=== PATIENT | male | born 1935 | race Caucasian/White ===

== ENCOUNTER 2018-10-05 16:01 | Outpatient (RCR) | payer MEDICARE, OTHER | END 2018-10-30 | LOC: PT 16:01 | PROVIDERS: ATTEND Psychiatry & Neurology Clinical Neurophysiology | DX: R26.9 Unspecified abnormalities of gait and mobility (principal) ==

== ENCOUNTER → 2020-04-18 | Day surgery (SDC) | payer MEDICARE, OTHER ==
[~2020-04-18] VITALS: Ht 193 cm; Wt 93.9 kg
[~2020-04-18] MED LIST: AMIODARONE HCL100 MG PO; BALANCED SALT SOLN (OPTH) 15 ML BTL IO ONE; BUPIVACAINE HC 0.75% PF 10ML VIAL INJ ONE; CYCLOPENTOLATE HCL 2% OPTH SOLN 2 ML BTL OP ONE; ELIQUIS5 MG PO; EPINEPHRINE HCL 1:1000 1ML 1 MG/ML AMP ONE; ERLEADA60 MG PO; FENTANYL CITRATE/PF 100MCG/2 ML INJ ONE; GATIFLOXACIN(OPTH) 5 ML LIQD ONE; LEVOTHYROXINE50 MCG PO; LIDOCAINE 2% /EPINEPHRINE 20 ML SDV INJ ONE; LIDOCAINE HCL-PF 4% 40 MG/1 ML 5ML AMP ONE; LUPRON DEPOT3.75 M1; METOPROLOL TART50 MG PO; METOPROLOL TARTRATE INJ 1 MG/ML VIAL ONE; PHENYLEPHRINE HCL 2 ML DROPS ONE; POVIDONE IODINE 5% (OPTH) 30 ML BTL ONE; PROPOFOL IV EMULSION 10 MG/ML 20 ML VIAL ONE; TOBRAMYCIN/DEXAMETHASONE(OPTH) 3.5 GM TUBE ONE
[2020-04-18 11:55] VITALS: BP 130/102
== END | disposition home or self-care (01) ==
LOC: OR 08:25
PROVIDERS: ATTEND Ophthalmology
DX: H25.11 Age-related nuclear cataract, right eye (principal); C61 Malignant neoplasm of prostate; I10 Essential (primary) hypertension; I48.91 Unspecified atrial fibrillation; E03.9 Hypothyroidism, unspecified; Z79.02 Long term (current) use of antithrombotics/antiplatelets
CPT/HCPCS: 66984; J0171; J2001; J2704; U0002; V2632; J3010

== ENCOUNTER → 2020-05-23 | Day surgery (SDC) | payer MEDICARE, OTHER ==
[~2020-05-23] MED LIST changes: -FENTANYL CITRATE/PF 100MCG/2 ML INJ ONE; -METOPROLOL TARTRATE INJ 1 MG/ML VIAL ONE; +PILOCARPINE HCL(OPTH) 15 ML LIQD ONE
[2020-05-23 11:53] VITALS: BP 143/99
== END | disposition home or self-care (01) ==
LOC: OR 08:33
PROVIDERS: ATTEND Ophthalmology
DX: H25.12 Age-related nuclear cataract, left eye (principal); I10 Essential (primary) hypertension; I48.91 Unspecified atrial fibrillation; I44.0 Atrioventricular block, first degree; Z01.812 Encounter for preprocedural laboratory examination; Z11.59 Encounter for screening for other viral diseases; Z79.02 Long term (current) use of antithrombotics/antiplatelets; Z85.46 Personal history of malignant neoplasm of prostate
CPT/HCPCS: 66982; J0171; J2001; J2704; U0002

== ENCOUNTER 2021-05-18 16:59 | Inpatient (IN) | payer MEDICARE, OTHER ==
[~2021-05-18] VITALS: Ht 193 cm; Wt 106.1 kg
[~2021-05-18 16:59] MED LIST changes: -BALANCED SALT SOLN (OPTH) 15 ML BTL IO ONE; -BUPIVACAINE HC 0.75% PF 10ML VIAL INJ ONE; -CYCLOPENTOLATE HCL 2% OPTH SOLN 2 ML BTL OP ONE; -EPINEPHRINE HCL 1:1000 1ML 1 MG/ML AMP ONE; -GATIFLOXACIN(OPTH) 5 ML LIQD ONE; -LIDOCAINE 2% /EPINEPHRINE 20 ML SDV INJ ONE; -LIDOCAINE HCL-PF 4% 40 MG/1 ML 5ML AMP ONE; -PHENYLEPHRINE HCL 2 ML DROPS ONE; -PILOCARPINE HCL(OPTH) 15 ML LIQD ONE; -POVIDONE IODINE 5% (OPTH) 30 ML BTL ONE; -PROPOFOL IV EMULSION 10 MG/ML 20 ML VIAL ONE; -TOBRAMYCIN/DEXAMETHASONE(OPTH) 3.5 GM TUBE ONE
[2021-05-18] MEDS ORDERED: SODIUM CHLORIDE 0.9% 1000ML 1,000 ML IV ONE ×2 (17:15→19:45)
[2021-05-18 17:39] LABS: BASOPHILS % 0.1 % (0.0-1.0); EOSINOPHILS % 0.1 % (0.0-6.0); HEMATOCRIT 31.9 % (38.2-49.6); HEMOGLOBIN 10.6 g/dL (14.0-18.0); LYMPHOCYTES # (AUTO) 1.1 (1.0-3.2); LYMPHOCYTES % 4.2 % (18.0-39.1); MEAN CORPUSCULAR HEMOGLOBIN 28.4 pg (28-32); MEAN CORPUSCULAR HGB CONC 33.2 g/dL (31-35); MEAN CORPUSCULAR VOLUME 85.5 fL (81-99); MONOCYTES # (AUTO) 2.2 (0.2-0.8); MONOCYTES % 8.6 % (4.4-11.3); NEUTROPHILS # (AUTO) 21.7 (2.1-6.9); NEUTROPHILS % 86.1 % (38.7-80.0); PLATELET COUNT 200 x10e3/uL (140-360); RED BLOOD COUNT 3.73 x10e6/uL (4.3-5.7); RED CELL DISTRIBUTION WIDTH 15.4 % (11.7-14.4)
[2021-05-18 17:52] LABS: ALANINE AMINOTRANSFERASE 35 IU/L (0-55); ALBUMIN 2.2 g/dL (3.5-5.0); ALBUMIN/GLOBULIN RATIO 0.8 (0.8-2.0); ALKALINE PHOSPHATASE 531 IU/L (40-150); BLOOD UREA NITROGEN 43 mg/dL (7-26); BUN/CREATININE RATIO 30 (6-25); CARBON DIOXIDE 21 mmol/L (22-29); CHLORIDE 97 mmol/L (98-107); CREATINE KINASE 133 IU/L (30-200); CREATININE, SERUM 1.44 mg/dL (0.72-1.25); EST GLOMERULAR FILTRATION RATE 47 ML/MIN (60-); GLUCOSE 121 mg/dL (74-118); SODIUM 129 mmol/L (136-145)
[2021-05-18] MEDS ORDERED: PIPERACILLIN/TAZOBACTAM 3.375 GM in SODIUM CHLORIDE 0.9% 50ML 50 ML IV ONE (18:45)
[2021-05-18] MEDS ORDERED: SODIUM CHLORIDE 0.9% 1000ML 1,000 ML ONE (19:34)
[2021-05-18 20:48] LABS: CLARITY,URINE CLEAR (CLEAR); COLOR,URINE YELLOW (YELLOW); KETONES,URINE NEGATIVE (NEGATIVE); LEUKOCYTE ESTERASE ,URINE NEGATIVE (NEGATIVE); NITRITE,URINE NEGATIVE (NEGATIVE); PROTEIN,URINE DIPSTICK NEGATIVE (NEGATIVE)
[2021-05-18 20:49] LABS: URINE UROBILINOGEN 1 mg/dL (0.2 - 1)
[2021-05-18 21:01] LABS: BACTERIA,URINE FEW /HPF; EPITHELIAL CELLS,URINE FEW /LPF; RBC,URINE 0-5 /HPF (0-5); WBC,URINE (MAN) 0-5 /HPF (0-5)
[2021-05-18 21:58] VITALS: BP 109/71
[2021-05-18] MEDS: SODIUM CHLORIDE 0.9% 1000ML 1,000 ML IV SCH (22:00)
[2021-05-18] MEDS: PIPERACILLIN/TAZOBACTAM 3.375 GM in SODIUM CHLORIDE 0.9% 50ML 50 ML IV SCH (22:00)
[2021-05-18 22:35] VITALS: BP 109/71
[2021-05-18] MEDS ORDERED: MULTAQ 400MG T400 MG PO (23:52)
[2021-05-18] MEDS ORDERED: LEVOTHYROXINE50 MCG PO (23:52)
[2021-05-18 23:59] VITALS: BP 103/60
[2021-05-19] VITALS (7 sets, daily range): BP systolic 91–100; BP diastolic 53–64
[2021-05-19] MEDS: Morphine 4mg Syringe 4 MG/ML INJ IV PRN (04:38)
[2021-05-19] MEDS: PIPERACILLIN/TAZOBACTAM 3.375 GM in SODIUM CHLORIDE 0.9% 50ML 50 ML IV SCH ×3 (04:38→21:45)
[2021-05-19 05:33] LABS: BASOPHILS % 0.2 % (0.0-1.0); EOSINOPHILS # (AUTO) 0.1 (0.0-0.4); EOSINOPHILS % 0.3 % (0.0-6.0); HEMATOCRIT 26.2 % (38.2-49.6); HEMOGLOBIN 9.1 g/dL (14.0-18.0); LYMPHOCYTES % 4.1 % (18.0-39.1); MEAN CORPUSCULAR HEMOGLOBIN 28.6 pg (28-32); MEAN CORPUSCULAR HGB CONC 34.7 g/dL (31-35); MEAN CORPUSCULAR VOLUME 82.4 fL (81-99); MONOCYTES % 8.7 % (4.4-11.3); NEUTROPHILS # (AUTO) 19.8 (2.1-6.9); NEUTROPHILS % 85.7 % (38.7-80.0); PLATELET COUNT 182 x10e3/uL (140-360); RED BLOOD COUNT 3.18 x10e6/uL (4.3-5.7); RED CELL DISTRIBUTION WIDTH 15.5 % (11.7-14.4)
[2021-05-19] MEDS: METRONIDAZOLE 500MG/NS 100ML 100 ML IV SCH ×5 (06:00→23:55)
[2021-05-19 06:06] LABS: ALBUMIN 1.7 g/dL (3.5-5.0); ALBUMIN/GLOBULIN RATIO 0.8 (0.8-2.0); ANION GAP 13.2 mmol/L (8-16); CALCIUM 7.4 mg/dL (8.4-10.2); CREATININE, SERUM 1.09 mg/dL (0.72-1.25); POTASSIUM 4.2 mmol/L (3.5-5.1)
[2021-05-19] MEDS: SODIUM CHLORIDE 0.9% 1000ML 1,000 ML IV SCH ×4 (06:58→20:00)
[2021-05-19 08:01] LABS: LYMPHOCYTES % (MANUAL) 4 % (19-48); MONOCYTES % (MANUAL) 5 % (3.4-9.0); NEUTROPHILS % (MANUAL) 91 % (40-74); PLATELET ESTIMATE ADEQUATE; PLATELET MORPHOLOGY COMMENT NORMAL; RBC MORPHOLOGY COMMENT NORMAL
[2021-05-19] MEDS ORDERED: PROPOFOL IV EMULSION 10 MG/ML 20 ML VIAL ONE (13:41)
[2021-05-19] MEDS ORDERED: SEVOFLURANE INHAL SOLN 250 ML PEN BTL ONE (13:41)
[2021-05-19] MEDS ORDERED: LIDOCAINE HCL 2% LOCAL INJ 5 ML SDV VIAL INJ ONE (13:41)
[2021-05-19] MEDS ORDERED: ONDANSETRON HCL INJ 2MG/ML 2ML 2 MG/ML VIAL ONE (13:41)
[2021-05-19] MEDS ORDERED: POVIDONE IODINE 0.05% 0.05 % ML PO ONE (13:41)
[2021-05-19] MEDS ORDERED: BUPIVACAINE 0.25% 30ML SDV ONE (14:08)
[2021-05-19] MEDS ORDERED: LIDOCAINE 1% W/EPINEPHRINE 20 ML VIAL ONE (14:08)
[2021-05-19] MEDS ORDERED: ONDANSETRON HCL INJ 2MG/ML 2ML 2 MG/ML VIAL IV PRN (14:45)
[2021-05-19] MEDS ORDERED: HYDROCODONE/APAP 7.5MG-325MG 1 EA TAB PO PRN (14:45)
[2021-05-19] MEDS ORDERED: FENTANYL CITRATE/PF 100MCG/2 ML INJ ONE (16:17)
[2021-05-19] MEDS: DRONEDARONE 400 MG TAB PO SCH ×2 (17:00→17:15)
[2021-05-19] MEDS: MAGNESIUM HYDROXIDE 30 ML UDC PO SCH (23:05)
[2021-05-20] VITALS (7 sets, daily range): BP systolic 95–109; BP diastolic 58–73
[2021-05-20 05:16] LABS: BASOPHILS % 0.1 % (0.0-1.0); EOSINOPHILS # (AUTO) 0.1 (0.0-0.4); EOSINOPHILS % 0.5 % (0.0-6.0); HEMATOCRIT 25.7 % (38.2-49.6); HEMOGLOBIN 8.6 g/dL (14.0-18.0); LYMPHOCYTES % 4.8 % (18.0-39.1); MEAN CORPUSCULAR HEMOGLOBIN 28.4 pg (28-32); MEAN CORPUSCULAR HGB CONC 33.5 g/dL (31-35); MEAN CORPUSCULAR VOLUME 84.8 fL (81-99); MONOCYTES # (AUTO) 1.9 (0.2-0.8); MONOCYTES % 9.2 % (4.4-11.3); NEUTROPHILS # (AUTO) 17.1 (2.1-6.9); NEUTROPHILS % 84.6 % (38.7-80.0); PLATELET COUNT 197 x10e3/uL (140-360); RED BLOOD COUNT 3.03 x10e6/uL (4.3-5.7); RED CELL DISTRIBUTION WIDTH 15.6 % (11.7-14.4)
[2021-05-20] MEDS: LEVOTHYROXINE SODIUM 25 MCG TABLET PO SCH (05:50)
[2021-05-20] MEDS: PIPERACILLIN/TAZOBACTAM 3.375 GM in SODIUM CHLORIDE 0.9% 50ML 50 ML IV SCH ×3 (05:50→22:00)
[2021-05-20 05:51] LABS: ANION GAP 10.1 mmol/L (8-16); CALCIUM 7.1 mg/dL (8.4-10.2); CREATININE, SERUM 1.11 mg/dL (0.72-1.25); POTASSIUM 4.1 mmol/L (3.5-5.1)
[2021-05-20] MEDS: METRONIDAZOLE 500MG/NS 100ML 100 ML IV SCH (06:41)
[2021-05-20] MEDS: DRONEDARONE 400 MG TAB PO SCH ×2 (08:00→17:00)
[2021-05-20] MEDS: SODIUM CHLORIDE 0.9% 1000ML 1,000 ML IV SCH ×2 (09:04→20:45)
[2021-05-20] MEDS: MAGNESIUM HYDROXIDE 30 ML UDC PO SCH (21:50)
[2021-05-21] VITALS (9 sets, daily range): BP systolic 93–127; BP diastolic 64–84
[2021-05-21] MEDS: LEVOTHYROXINE SODIUM 25 MCG TABLET PO SCH (06:00)
[2021-05-21] MEDS: PIPERACILLIN/TAZOBACTAM 3.375 GM in SODIUM CHLORIDE 0.9% 50ML 50 ML IV SCH ×3 (06:00→22:00)
[2021-05-21] MEDS: SODIUM CHLORIDE 0.9% 1000ML 1,000 ML IV SCH ×3 (06:38→22:00)
[2021-05-21] MEDS: DRONEDARONE 400 MG TAB PO SCH ×2 (09:01→16:35)
[2021-05-21] MEDS ORDERED: ONDANSETRON HCL 4 MG ORAL DISINTEGRATING TAB PO PRN (10:45)
[2021-05-21] MEDS: TRIMETHOPRIM/SULFAMETHOXAZOLE 160-800 MG TAB PO SCH (21:00)
[2021-05-21] MEDS: MAGNESIUM HYDROXIDE 30 ML UDC PO SCH (21:00)
[2021-05-22] VITALS (9 sets, daily range): BP systolic 101–113; BP diastolic 49–79
[2021-05-22] MEDS: Morphine 4mg Syringe 4 MG/ML INJ IV PRN (02:45)
[2021-05-22] MEDS: PIPERACILLIN/TAZOBACTAM 3.375 GM in SODIUM CHLORIDE 0.9% 50ML 50 ML IV SCH ×2 (06:00→13:11)
[2021-05-22] MEDS: LEVOTHYROXINE SODIUM 25 MCG TABLET PO SCH (06:00)
[2021-05-22] MEDS: DRONEDARONE 400 MG TAB PO SCH ×2 (08:59→17:00)
[2021-05-22] MEDS: TRIMETHOPRIM/SULFAMETHOXAZOLE 160-800 MG TAB PO SCH (08:59)
[2021-05-22] MEDS ORDERED: DIATRIZOATE MEGL/DIATRIZOA SOD 30 ML BTL PO ONE (09:07)
[2021-05-22 09:51] LABS: BASOPHILS # (AUTO) 0.1 (0.0-0.1); BASOPHILS % 0.3 % (0.0-1.0); EOSINOPHILS # (AUTO) 0.2 (0.0-0.4); EOSINOPHILS % 0.7 % (0.0-6.0); HEMATOCRIT 32.9 % (38.2-49.6); HEMOGLOBIN 10.7 g/dL (14.0-18.0); LYMPHOCYTES # (AUTO) 1.3 (1.0-3.2); MEAN CORPUSCULAR HEMOGLOBIN 27.9 pg (28-32); MEAN CORPUSCULAR HGB CONC 32.5 g/dL (31-35); MEAN CORPUSCULAR VOLUME 85.9 fL (81-99); MONOCYTES % 7.6 % (4.4-11.3); NEUTROPHILS # (AUTO) 22.8 (2.1-6.9); NEUTROPHILS % 85.4 % (38.7-80.0); PLATELET COUNT 220 x10e3/uL (140-360); RED BLOOD COUNT 3.83 x10e6/uL (4.3-5.7); RED CELL DISTRIBUTION WIDTH 16.3 % (11.7-14.4)
[2021-05-22 10:20] LABS: ALBUMIN 1.8 g/dL (3.5-5.0); ALBUMIN/GLOBULIN RATIO 0.7 (0.8-2.0); ANION GAP 9.5 mmol/L (8-16); CALCIUM 7.7 mg/dL (8.4-10.2); CREATININE, SERUM 1.13 mg/dL (0.72-1.25); POTASSIUM 4.5 mmol/L (3.5-5.1)
[2021-05-22] MEDS: SODIUM CHLORIDE 0.9% 1000ML 1,000 ML IV SCH ×2 (11:45→21:50)
[2021-05-22] MEDS ORDERED: CITRATE OF MAGNESIA 300ML BOTTLE ONE (17:53)
[2021-05-22] MEDS ORDERED: CITRATE OF MAGNESIA 300ML BOTTLE PO ONE (18:00)
[2021-05-22] MEDS: MAGNESIUM HYDROXIDE 30 ML UDC PO SCH (21:45)
[2021-05-23] VITALS (8 sets, daily range): BP systolic 91–111; BP diastolic 61–76
[2021-05-23] MEDS: LEVOTHYROXINE SODIUM 25 MCG TABLET PO SCH (06:13)
[2021-05-23] MEDS: SODIUM CHLORIDE 0.9% 1000ML 1,000 ML IV SCH ×2 (08:07→18:16)
[2021-05-23] MEDS: DRONEDARONE 400 MG TAB PO SCH ×2 (08:07→18:16)
[2021-05-23] MEDS ORDERED: DIGOXIN INJ 0.25 MG/ML 2 ML AMP IV ONE (14:00)
[2021-05-23] MEDS ORDERED: LIDOCAINE HCL 2% 30 ML TUBE TOP ONE (15:00)
[2021-05-23] MEDS: POLYETHYLENE GLYCOL 3350 17 GM PACK PO SCH ×2 (15:50→17:46)
[2021-05-23 15:58] LABS: FREE T4 (FREE THYROXINE) 0.65 ng/dL (0.8-1.8); THYROID STIMULATING HORMONE 4.43 uIU/mL (0.350-4.940)
[2021-05-23] MEDS: DIGOXIN 0.125 MG TAB PO SCH (16:05)
[2021-05-23] MEDS: MAGNESIUM HYDROXIDE 30 ML UDC PO SCH (20:33)
[2021-05-24] VITALS (10 sets, daily range): BP systolic 103–144; BP diastolic 65–84
[2021-05-24] MEDS: SODIUM CHLORIDE 0.9% 1000ML 1,000 ML IV SCH ×2 (04:45→14:45)
[2021-05-24] MEDS: LEVOTHYROXINE SODIUM 25 MCG TABLET PO SCH (06:17)
[2021-05-24] MEDS: DIGOXIN 0.125 MG TAB PO SCH (09:29)
[2021-05-24] MEDS: POLYETHYLENE GLYCOL 3350 17 GM PACK PO SCH ×2 (09:29→17:28)
[2021-05-24] MEDS: DRONEDARONE 400 MG TAB PO SCH ×2 (09:29→17:28)
[2021-05-24] MEDS: MAGNESIUM HYDROXIDE 30 ML UDC PO SCH (20:54)
[2021-05-25] VITALS (8 sets, daily range): BP systolic 108–124; BP diastolic 59–75
[2021-05-25] MEDS: SODIUM CHLORIDE 0.9% 1000ML 1,000 ML IV SCH ×3 (00:45→20:45)
[2021-05-25] MEDS: LEVOTHYROXINE SODIUM 25 MCG TABLET PO SCH (07:04)
[2021-05-25] MEDS: POLYETHYLENE GLYCOL 3350 17 GM PACK PO SCH ×2 (09:00→17:00)
[2021-05-25] MEDS: DIGOXIN 0.125 MG TAB PO SCH (09:18)
[2021-05-25] MEDS: DRONEDARONE 400 MG TAB PO SCH ×2 (09:18→17:42)
[2021-05-25] MEDS: MAGNESIUM HYDROXIDE 30 ML UDC PO SCH (20:56)
[2021-05-26] VITALS (7 sets, daily range): BP systolic 102–139; BP diastolic 53–66
[2021-05-26] MEDS: LEVOTHYROXINE SODIUM 25 MCG TABLET PO SCH ×2 (06:00→10:11)
[2021-05-26] MEDS: SODIUM CHLORIDE 0.9% 1000ML 1,000 ML IV SCH ×2 (06:45→16:27)
[2021-05-26 08:33] LABS: BASOPHILS # (AUTO) 0.1 (0.0-0.1); BASOPHILS % 0.2 % (0.0-1.0); EOSINOPHILS # (AUTO) 0.2 (0.0-0.4); EOSINOPHILS % 0.4 % (0.0-6.0); HEMOGLOBIN 10.6 g/dL (14.0-18.0); LYMPHOCYTES # (AUTO) 1.8 (1.0-3.2); LYMPHOCYTES % 4.7 % (18.0-39.1); MEAN CORPUSCULAR HEMOGLOBIN 28.3 pg (28-32); MEAN CORPUSCULAR HGB CONC 32.1 g/dL (31-35); MONOCYTES # (AUTO) 3.1 (0.2-0.8); MONOCYTES % 8.3 % (4.4-11.3); NEUTROPHILS # (AUTO) 31.7 (2.1-6.9); NEUTROPHILS % 84.9 % (38.7-80.0); PLATELET COUNT 257 x10e3/uL (140-360); RED BLOOD COUNT 3.75 x10e6/uL (4.3-5.7); RED CELL DISTRIBUTION WIDTH 17.5 % (11.7-14.4)
[2021-05-26] MEDS ORDERED: FUROSEMIDE INJ 10 MG/ML 2 ML VIAL IV ONE (09:00)
[2021-05-26 09:32] LABS: LYMPHOCYTES % (MANUAL) 2 % (19-48); MONOCYTES % (MANUAL) 4 % (3.4-9.0); NEUTROPHILS % (MANUAL) 94 % (40-74); PLATELET ESTIMATE ADEQUATE; PLATELET MORPHOLOGY COMMENT NORMAL; RBC MORPHOLOGY COMMENT NORMAL
[2021-05-26 09:39] LABS: ANION GAP 11.9 mmol/L (8-16); CALCIUM 7.9 mg/dL (8.4-10.2); CREATININE, SERUM 1.04 mg/dL (0.72-1.25); POTASSIUM 4.9 mmol/L (3.5-5.1)
[2021-05-26] MEDS: DRONEDARONE 400 MG TAB PO SCH ×2 (09:56→16:30)
[2021-05-26] MEDS: DIGOXIN 0.125 MG TAB PO SCH (09:57)
[2021-05-26] MEDS: POLYETHYLENE GLYCOL 3350 17 GM PACK PO SCH ×2 (09:57→16:27)
[2021-05-26 10:12] LABS: % IRON SATURATION 16 % (15-50); IRON 22 ug/dL (65-175); TOTAL IRON BINDING CAPACITY 136 ug/dL (261-478); TRANSFERRIN 97 mg/dL (174-364)
[2021-05-26] MEDS: IRON SUCROSE 100 MG in SODIUM CHLORIDE 0.9% 100 ML 100 ML IV SCH (14:40)
[2021-05-26] MEDS ORDERED: CEFTRIAXONE 1 GM in SODIUM CHLORIDE 0.9% 50ML 50 ML IV ONE (20:45)
[2021-05-26] MEDS: MAGNESIUM HYDROXIDE 30 ML UDC PO SCH (21:00)
[2021-05-26] MEDS ORDERED: METRONIDAZOLE 500MG/NS 100ML 100 ML IV ONE (21:13)
[2021-05-26] MEDS: METRONIDAZOLE 250MG/NS 50ML 50 ML IV SCH (22:00)
[2021-05-27] VITALS (9 sets, daily range): BP systolic 95–111; BP diastolic 59–71
[2021-05-27] MEDS: SODIUM CHLORIDE 0.9% 1000ML 1,000 ML IV SCH ×2 (02:45→13:29)
[2021-05-27] MEDS: METRONIDAZOLE 250MG/NS 50ML 50 ML IV SCH ×3 (05:15→22:04)
[2021-05-27] MEDS ORDERED: METRONIDAZOLE 500MG/NS 100ML 100 ML IV ONE (05:23)
[2021-05-27 07:23] LABS: BASOPHILS # (AUTO) 0.1 (0.0-0.1); BASOPHILS % 0.3 % (0.0-1.0); EOSINOPHILS # (AUTO) 0.2 (0.0-0.4); EOSINOPHILS % 0.5 % (0.0-6.0); HEMOGLOBIN 8.9 g/dL (14.0-18.0); LYMPHOCYTES # (AUTO) 1.4 (1.0-3.2); LYMPHOCYTES % 4.2 % (18.0-39.1); MEAN CORPUSCULAR HEMOGLOBIN 28.6 pg (28-32); MEAN CORPUSCULAR HGB CONC 31.8 g/dL (31-35); MONOCYTES # (AUTO) 2.6 (0.2-0.8); MONOCYTES % 7.8 % (4.4-11.3); NEUTROPHILS # (AUTO) 28.4 (2.1-6.9); NEUTROPHILS % 85.8 % (38.7-80.0); PLATELET COUNT 247 x10e3/uL (140-360); RED BLOOD COUNT 3.11 x10e6/uL (4.3-5.7); RED CELL DISTRIBUTION WIDTH 18.3 % (11.7-14.4)
[2021-05-27 07:32] LABS: INR 1.38; PROTHROMBIN TIME 17.6 seconds (11.9-14.5)
[2021-05-27 07:41] LABS: ALBUMIN 1.5 g/dL (3.5-5.0); ALBUMIN/GLOBULIN RATIO 0.6 (0.8-2.0); ANION GAP 11.7 mmol/L (8-16); CALCIUM 7.4 mg/dL (8.4-10.2); CREATININE, SERUM 0.95 mg/dL (0.72-1.25); POTASSIUM 4.7 mmol/L (3.5-5.1)
[2021-05-27] MEDS: DRONEDARONE 400 MG TAB PO SCH ×2 (08:00→17:00)
[2021-05-27 08:48] LABS: LYMPHOCYTES % (MANUAL) 2 % (19-48); MONOCYTES % (MANUAL) 4 % (3.4-9.0); NEUTROPHILS % (MANUAL) 94 % (40-74)
[2021-05-27 08:49] LABS: ANISOCYTOSIS MODERATE; PLATELET ESTIMATE ADEQUATE; PLATELET MORPHOLOGY COMMENT NORMAL; RBC MORPHOLOGY COMMENT ABNORMAL
[2021-05-27] MEDS: DIGOXIN 0.125 MG TAB PO SCH (09:00)
[2021-05-27] MEDS: POLYETHYLENE GLYCOL 3350 17 GM PACK PO SCH ×2 (09:00→17:00)
[2021-05-27] MEDS: CEFTRIAXONE 2 GM in SODIUM CHLORIDE 0.9% 100 ML IV SCH (09:00)
[2021-05-27] MEDS ORDERED: NYSTATIN 15 GM POWDER UD BTL TOP PRN (11:15)
[2021-05-27] MEDS ORDERED: METOLAZONE 5 MG TAB PO ONE (11:45)
[2021-05-27] MEDS ORDERED: BUMETANIDE INJ 0.25 MG/ML 10 ML VIAL IV ONE (11:45)
[2021-05-27] MEDS: BUMETANIDE 10 MG in SODIUM CHLORIDE 0.9% 100 ML 60 ML IV SCH ×2 (13:29→22:04)
[2021-05-27] MEDS: IRON SUCROSE 100 MG in SODIUM CHLORIDE 0.9% 100 ML 100 ML IV SCH (16:03)
[2021-05-27] MEDS: MAGNESIUM HYDROXIDE 30 ML UDC PO SCH (21:00)
[2021-05-28] VITALS (7 sets, daily range): BP systolic 90–108; BP diastolic 63–92
[2021-05-28] MEDS: METRONIDAZOLE 250MG/NS 50ML 50 ML IV SCH ×3 (05:16→21:53)
[2021-05-28] MEDS: LEVOTHYROXINE SODIUM 25 MCG TABLET PO SCH (06:00)
[2021-05-28] MEDS: DIGOXIN 0.125 MG TAB PO SCH (08:22)
[2021-05-28] MEDS: DRONEDARONE 400 MG TAB PO SCH ×2 (08:22→22:02)
[2021-05-28] MEDS: CEFTRIAXONE 2 GM in SODIUM CHLORIDE 0.9% 100 ML IV SCH (08:37)
[2021-05-28] MEDS: POLYETHYLENE GLYCOL 3350 17 GM PACK PO SCH ×2 (08:37→16:37)
[2021-05-28] MEDS ORDERED: BUMETANIDE 10 MG in SODIUM CHLORIDE 0.9% 100 ML 60 ML IV SCH (10:00)
[2021-05-28 11:59] LABS: ALBUMIN 1.6 g/dL (3.5-5.0); ALBUMIN/GLOBULIN RATIO 0.6 (0.8-2.0); ANION GAP 12.6 mmol/L (8-16); CALCIUM 7.3 mg/dL (8.4-10.2); CREATININE, SERUM 1.43 mg/dL (0.72-1.25); POTASSIUM 3.6 mmol/L (3.5-5.1)
[2021-05-28] MEDS ORDERED: ALBUMIN 5% 250ML 500 ML IV ONE (12:30)
[2021-05-28] MEDS: IRON SUCROSE 100 MG in SODIUM CHLORIDE 0.9% 100 ML 100 ML IV SCH (14:58)
[2021-05-28] MEDS: MAGNESIUM HYDROXIDE 30 ML UDC PO SCH (21:00)
[2021-05-29] VITALS (8 sets, daily range): BP systolic 84–108; BP diastolic 59–72
[2021-05-29] MEDS: LEVOTHYROXINE SODIUM 25 MCG TABLET PO SCH (06:00)
[2021-05-29] MEDS: METRONIDAZOLE 250MG/NS 50ML 50 ML IV SCH ×3 (06:01→21:51)
[2021-05-29] MEDS: CEFTRIAXONE 2 GM in SODIUM CHLORIDE 0.9% 100 ML IV SCH (08:35)
[2021-05-29] MEDS: DRONEDARONE 400 MG TAB PO SCH ×2 (08:35→19:50)
[2021-05-29] MEDS: POLYETHYLENE GLYCOL 3350 17 GM PACK PO SCH ×2 (09:40→16:47)
[2021-05-29] MEDS ORDERED: ALBUMIN 5% 250ML 500 ML IV ONE (10:30)
[2021-05-29] MEDS: IRON SUCROSE 100 MG in SODIUM CHLORIDE 0.9% 100 ML 100 ML IV SCH (16:47)
[2021-05-29] MEDS: MAGNESIUM HYDROXIDE 30 ML UDC PO SCH (21:00)
[2021-05-29] MEDS: BUMETANIDE 10 MG in SODIUM CHLORIDE 0.9% 100 ML 60 ML IV SCH (21:51)
[2021-05-30] VITALS (7 sets, daily range): BP systolic 92–105; BP diastolic 60–69
[2021-05-30] MEDS: METRONIDAZOLE 250MG/NS 50ML 50 ML IV SCH ×2 (05:40→14:00)
[2021-05-30 05:46] LABS: BASOPHILS # (AUTO) 0.1 (0.0-0.1); BASOPHILS % 0.3 % (0.0-1.0); EOSINOPHILS # (AUTO) 0.1 (0.0-0.4); EOSINOPHILS % 0.4 % (0.0-6.0); HEMATOCRIT 27.9 % (38.2-49.6); HEMOGLOBIN 9.1 g/dL (14.0-18.0); LYMPHOCYTES # (AUTO) 1.3 (1.0-3.2); LYMPHOCYTES % 5.1 % (18.0-39.1); MEAN CORPUSCULAR HEMOGLOBIN 28.6 pg (28-32); MEAN CORPUSCULAR HGB CONC 32.6 g/dL (31-35); MEAN CORPUSCULAR VOLUME 87.7 fL (81-99); MONOCYTES # (AUTO) 2.2 (0.2-0.8); MONOCYTES % 8.3 % (4.4-11.3); NEUTROPHILS # (AUTO) 22.1 (2.1-6.9); NEUTROPHILS % 85.2 % (38.7-80.0); PLATELET COUNT 240 x10e3/uL (140-360); RED BLOOD COUNT 3.18 x10e6/uL (4.3-5.7); RED CELL DISTRIBUTION WIDTH 20.2 % (11.7-14.4)
[2021-05-30] MEDS: LEVOTHYROXINE SODIUM 25 MCG TABLET PO SCH (06:00)
[2021-05-30 06:32] LABS: ALBUMIN 2.1 g/dL (3.5-5.0); ALBUMIN/GLOBULIN RATIO 0.8 (0.8-2.0); ANION GAP 18.7 mmol/L (8-16); CALCIUM 7.3 mg/dL (8.4-10.2); CREATININE, SERUM 1.8 mg/dL (0.72-1.25)
[2021-05-30 06:42] LABS: POTASSIUM 2.7 mmol/L (3.5-5.1)
[2021-05-30] MEDS ORDERED: POTASSIUM CHLORIDE 20 MEQ TAB CR PO NR (07:30)
[2021-05-30] MEDS: DRONEDARONE 400 MG TAB PO SCH ×3 (08:20→20:43)
[2021-05-30] MEDS: CEFTRIAXONE 2 GM in SODIUM CHLORIDE 0.9% 100 ML IV SCH (08:20)
[2021-05-30] MEDS: POLYETHYLENE GLYCOL 3350 17 GM PACK PO SCH ×2 (08:22→17:00)
[2021-05-30 09:30] LABS: EOSINOPHILS % (MANUAL) 1 % (0-7); LYMPHOCYTES % (MANUAL) 4 % (19-48); MONOCYTES % (MANUAL) 9 % (3.4-9.0); NEUTROPHILS % (MANUAL) 86 % (40-74)
[2021-05-30] MEDS ORDERED: POTASSIUM CHLORIDE 20MEQ/100ML 200 ML IV ONE (09:30)
[2021-05-30 09:32] LABS: PLATELET ESTIMATE ADEQUATE
[2021-05-30 09:33] LABS: PLATELET MORPHOLOGY COMMENT FEW GIANT; RBC MORPHOLOGY COMMENT NORMAL
[2021-05-30] MEDS ORDERED: SODIUM CHLORIDE 0.9% 1000ML 1,000 ML ONE (09:51)
[2021-05-30] MEDS ORDERED: ALBUMIN 5% IV ONE (10:00)
[2021-05-30] MEDS ORDERED: POTASSIUM CHLORIDE 20 MEQ TAB CR PO ONE ×4 (11:00→16:00)
[2021-05-30] MEDS: IRON SUCROSE 100 MG in SODIUM CHLORIDE 0.9% 100 ML 100 ML IV SCH (14:00)
[2021-05-30] MEDS: BUMETANIDE 10 MG in SODIUM CHLORIDE 0.9% 100 ML 60 ML IV SCH (18:00)
[2021-05-30] MEDS: MAGNESIUM HYDROXIDE 30 ML UDC PO SCH (20:42)
[2021-05-31] VITALS (7 sets, daily range): BP systolic 83–102; BP diastolic 52–65
[2021-05-31 05:44] LABS: ALBUMIN 2.6 g/dL (3.5-5.0); ALBUMIN/GLOBULIN RATIO 1.1 (0.8-2.0); ANION GAP 19.1 mmol/L (8-16); CALCIUM 7.6 mg/dL (8.4-10.2); CREATININE, SERUM 1.96 mg/dL (0.72-1.25); MAGNESIUM 1.9 MG/DL (1.3-2.1); PHOSPHORUS 4.5 MG/DL (2.3-4.7); POTASSIUM 3.1 mmol/L (3.5-5.1)
[2021-05-31] MEDS: LEVOTHYROXINE SODIUM 25 MCG TABLET PO SCH ×2 (06:00→09:40)
[2021-05-31] MEDS: POLYETHYLENE GLYCOL 3350 17 GM PACK PO SCH ×2 (09:00→17:00)
[2021-05-31] MEDS: DRONEDARONE 400 MG TAB PO SCH ×2 (09:40→20:37)
[2021-05-31] MEDS: ASPIRIN 81 MG CHEW TAB PO SCH (09:40)
[2021-05-31] MEDS ORDERED: POTASSIUM CHLORIDE 20 MEQ TAB CR PO NR ×3 (11:00→12:30)
[2021-05-31] MEDS ORDERED: POTASSIUM CHLORIDE 20 MEQ TAB CR PO STA (12:18)
[2021-05-31] MEDS: MAGNESIUM HYDROXIDE 30 ML UDC PO SCH (20:37)
[2021-06-01] VITALS (9 sets, daily range): BP systolic 83–105; BP diastolic 62–69
[2021-06-01 07:49] LABS: HEMATOCRIT 29.4 % (38.2-49.6); HEMOGLOBIN 9.3 g/dL (14.0-18.0)
[2021-06-01] MEDS: LEVOTHYROXINE SODIUM 25 MCG TABLET PO SCH (08:00)
[2021-06-01 08:14] LABS: CALCIUM 7.9 mg/dL (8.4-10.2); CREATININE, SERUM 2.06 mg/dL (0.72-1.25); MAGNESIUM 2.2 MG/DL (1.3-2.1)
[2021-06-01] MEDS: ASPIRIN 81 MG CHEW TAB PO SCH (09:00)
[2021-06-01] MEDS: POLYETHYLENE GLYCOL 3350 17 GM PACK PO SCH ×2 (09:00→17:00)
[2021-06-01] MEDS ORDERED: BUMETANIDE 1 MG TAB PO SCH (09:00)
[2021-06-01] MEDS: DRONEDARONE 400 MG TAB PO SCH ×2 (09:00→19:55)
[2021-06-01 11:27] LABS: BASOPHILS # (AUTO) 0.1 (0.0-0.1); BASOPHILS % 0.4 % (0.0-1.0); EOSINOPHILS # (AUTO) 0.1 (0.0-0.4); EOSINOPHILS % 0.4 % (0.0-6.0); HEMOGLOBIN 9.3 g/dL (14.0-18.0); LYMPHOCYTES # (AUTO) 1.4 (1.0-3.2); LYMPHOCYTES % 6.3 % (18.0-39.1); MEAN CORPUSCULAR HEMOGLOBIN 28.5 pg (28-32); MONOCYTES # (AUTO) 2.1 (0.2-0.8); MONOCYTES % 9.1 % (4.4-11.3); NEUTROPHILS % 82.9 % (38.7-80.0); PLATELET COUNT 228 x10e3/uL (140-360); RED BLOOD COUNT 3.26 x10e6/uL (4.3-5.7); RED CELL DISTRIBUTION WIDTH 22.8 % (11.7-14.4)
[2021-06-01 12:53] LABS: PHOSPHORUS 4.2 MG/DL (2.3-4.7)
[2021-06-01] MEDS: MAGNESIUM HYDROXIDE 30 ML UDC PO SCH (21:00)
[2021-06-02] VITALS (7 sets, daily range): BP systolic 93–106; BP diastolic 59–74
[2021-06-02] MEDS: LEVOTHYROXINE SODIUM 25 MCG TABLET PO SCH (08:03)
[2021-06-02] MEDS: ASPIRIN 81 MG CHEW TAB PO SCH (08:03)
[2021-06-02] MEDS: DRONEDARONE 400 MG TAB PO SCH ×2 (08:03→21:33)
[2021-06-02] MEDS: BUMETANIDE 1 MG TAB PO SCH (08:03)
[2021-06-02] MEDS: POLYETHYLENE GLYCOL 3350 17 GM PACK PO SCH ×2 (08:08→16:04)
[2021-06-02 09:13] LABS: ANION GAP 15.6 mmol/L (8-16); CALCIUM 7.6 mg/dL (8.4-10.2); CREATININE, SERUM 2.04 mg/dL (0.72-1.25); MAGNESIUM 1.9 MG/DL (1.3-2.1)
[2021-06-02 09:26] LABS: POTASSIUM 2.6 mmol/L (3.5-5.1)
[2021-06-02] MEDS ORDERED: CHLORASEPTIC SPRAY 177 ML BTL MM PRN (10:15)
[2021-06-02] MEDS ORDERED: POTASSIUM CHLORIDE 20 MEQ TAB CR PO ONE (10:30)
[2021-06-02] MEDS: MAGNESIUM HYDROXIDE 30 ML UDC PO SCH ×2 (21:00→21:33)
[2021-06-03] VITALS (8 sets, daily range): BP systolic 89–98; BP diastolic 54–68
[2021-06-03 08:32] LABS: BASOPHILS # (AUTO) 0.1 (0.0-0.1); BASOPHILS % 0.3 % (0.0-1.0); EOSINOPHILS # (AUTO) 0.1 (0.0-0.4); EOSINOPHILS % 0.1 % (0.0-6.0); HEMATOCRIT 28.5 % (38.2-49.6); HEMOGLOBIN 9.1 g/dL (14.0-18.0); LYMPHOCYTES # (AUTO) 1.3 (1.0-3.2); LYMPHOCYTES % 3.8 % (18.0-39.1); MEAN CORPUSCULAR HEMOGLOBIN 29.2 pg (28-32); MEAN CORPUSCULAR HGB CONC 31.9 g/dL (31-35); MEAN CORPUSCULAR VOLUME 91.3 fL (81-99); MONOCYTES # (AUTO) 2.1 (0.2-0.8); MONOCYTES % 6.2 % (4.4-11.3); NEUTROPHILS # (AUTO) 30.5 (2.1-6.9); NEUTROPHILS % 88.3 % (38.7-80.0); PLATELET COUNT 192 x10e3/uL (140-360); RED BLOOD COUNT 3.12 x10e6/uL (4.3-5.7); RED CELL DISTRIBUTION WIDTH 24.1 % (11.7-14.4)
[2021-06-03] MEDS: LEVOTHYROXINE SODIUM 25 MCG TABLET PO SCH (08:33)
[2021-06-03] MEDS: SALIVA SUBSTITUTE 45 ML LIQD MM SCH (08:34)
[2021-06-03] MEDS: ASPIRIN 81 MG CHEW TAB PO SCH (08:34)
[2021-06-03] MEDS: DRONEDARONE 400 MG TAB PO SCH ×2 (08:34→21:22)
[2021-06-03] MEDS: BUMETANIDE 1 MG TAB PO SCH (08:34)
[2021-06-03] MEDS: POLYETHYLENE GLYCOL 3350 17 GM PACK PO SCH ×2 (08:34→15:56)
[2021-06-03 08:58] LABS: ALBUMIN 2.2 g/dL (3.5-5.0); ALBUMIN/GLOBULIN RATIO 0.9 (0.8-2.0); ANION GAP 17.4 mmol/L (8-16); CALCIUM 7.5 mg/dL (8.4-10.2); CREATININE, SERUM 2.11 mg/dL (0.72-1.25)
[2021-06-03 09:10] LABS: POTASSIUM 2.4 mmol/L (3.5-5.1)
[2021-06-03] MEDS ORDERED: POTASSIUM CHLORIDE 20MEQ/100ML 200 ML IV ONE (10:30)
[2021-06-03] MEDS: POTASSIUM CHLORIDE 20 MEQ TAB CR PO SCH ×3 (10:51→21:24)
[2021-06-03 11:18] LABS: ANISOCYTOSIS MARKED; HYPOCHROMASIA MODERATE; LYMPHOCYTES % (MANUAL) 3 % (19-48); MONOCYTES % (MANUAL) 1 % (3.4-9.0); NEUTROPHILS % (MANUAL) 96 % (40-74); PLATELET ESTIMATE ADEQUATE; PLATELET MORPHOLOGY COMMENT NORMAL; POIKILOCYTOSIS SLIGHT
[2021-06-03] MEDS ORDERED: BIOTENE ORALBAL45 ML MM (14:57)
[2021-06-03] MEDS ORDERED: MIRALAX17 GM PO (14:57)
[2021-06-03] MEDS ORDERED: MILK OF MA400 MG/5 M PO (14:57)
[2021-06-03] MEDS ORDERED: ALDACTONE25 MG PO (14:57)
[2021-06-03] MEDS ORDERED: MAGNESIUM/ALUMINUM/SIMETHICONE 30 ML UDC PO PRN (18:00)
[2021-06-03] MEDS: MAGNESIUM HYDROXIDE 30 ML UDC PO SCH (21:00)
[2021-06-04] VITALS: BP 102/63
[2021-06-04 04:00] VITALS: BP 103/70
[2021-06-04 07:32] VITALS: BP 91/62
[2021-06-04 08:00] VITALS: BP 91/62
[2021-06-04] MEDS: LEVOTHYROXINE SODIUM 25 MCG TABLET PO SCH (08:04)
[2021-06-04] MEDS: ASPIRIN 81 MG CHEW TAB PO SCH (09:00)
[2021-06-04] MEDS: SALIVA SUBSTITUTE 45 ML LIQD MM SCH (09:00)
[2021-06-04] MEDS: POTASSIUM CHLORIDE 20 MEQ TAB CR PO SCH ×2 (09:00→15:02)
[2021-06-04] MEDS: DRONEDARONE 400 MG TAB PO SCH (09:00)
[2021-06-04] MEDS ORDERED: SPIRONOLACTONE 25 MG TAB PO SCH (09:00)
[2021-06-04] MEDS: POLYETHYLENE GLYCOL 3350 17 GM PACK PO SCH (09:00)
[2021-06-04 11:28] VITALS: BP 101/58
[2021-06-04] MEDS ORDERED: PIPERACILLIN/TAZOBACTAM 3.375 GM in SODIUM CHLORIDE 0.9% 50ML 50 ML IV SCH (12:00)
[2021-06-04] MEDS ORDERED: ALBUTEROL SULF 0.083% NEB SOLN 3 ML NEB NEB SCH (15:00)
[2021-06-04 16:24] VITALS: BP 89/53
== END 2021-06-04 16:42 | DRG 389 ==
LOC: ER 17:03 → ERHOLD 20:43 → MED/SURG2 22:00
PROVIDERS: ADMIT Surgery; ATTEND Surgery
PROC: 0DCP7ZZ Extirpation of Matter from Rectum, Via Natural or Artificial Opening (ICD-10-PCS; principal; 2021-05-19 14:15)
DX: K56.41 Fecal impaction (principal); C78.7 Secondary malignant neoplasm of liver and intrahepatic bile duct; K56.7 Ileus, unspecified; N17.9 Acute kidney failure, unspecified; J98.11 Atelectasis; J90 Pleural effusion, not elsewhere classified; E87.1 Hypo-osmolality and hyponatremia; R18.8 Other ascites; R64 Cachexia; E86.0 Dehydration; C61 Malignant neoplasm of prostate; I48.0 Paroxysmal atrial fibrillation; E03.9 Hypothyroidism, unspecified; E83.51 Hypocalcemia; R53.81 Other malaise; E87.6 Hypokalemia; R62.7 Adult failure to thrive; N43.3 Hydrocele, unspecified; D64.9 Anemia, unspecified; Z68.28 Body mass index [BMI] 28.0-28.9, adult; Z20.822 Contact with and (suspected) exposure to COVID-19; Z68.25 Body mass index [BMI] 25.0-25.9, adult
CPT/HCPCS: 36415; 71045; 71250; 74019; 74022; 74150; 74176; 76604; 80048; 80053; 80162; 81001; 82550; 82553; 83540; 83605; 83735; 83880; 84100; 84439; 84443; 84466; 84484; 85014; 85018; 85025; 85610; 87040; 87086; 93005; 93306; 93970; 94640; 94799; 96360; 96361; 97139; 99251; 99284; J0696; J1160; J1756; J2001; J2270; J2405; J2543; J3010; J3480; J7030; J7050; P9045; U0002